=== PATIENT | female | born 1950 | race Caucasian/White ===

== ENCOUNTER 2016-12-09 10:52 | Inpatient (IN) | payer MEDICARE, OTHER ==
[~2016-12-09] VITALS: Ht 165.1 cm; Wt 99.5 kg
[2016-12-09] MEDS ORDERED: IPRATROPIUM (NEB) 0.5 MG/2.5 ML AMP INH STA (11:17)
[2016-12-09] MEDS ORDERED: ALBUTEROL 0.5% (NEB) 2.5 MG/0.5 ML AMP INH STA (11:17)
--- NOTE | 2016-12-09 11:27 | ERA ---
ER Documentation Chief Complaint Date/Time DATE: 12/09/16 TIME: 11:23 Chief Complaint CHEST PAIN; SHORTNESS OF BREATH HPI Patient is a 66-year-old female who reports shortness of breath over the last 2 weeks. She was in a different emergency department last night where they treated her with IV antibiotics and breathing treatments. She was discharged home and told to go to the emergency department if she develops any worsening symptoms. She says that her shortness of breath has worsened throughout the night. She has had chills without a fever. She has has a cough that is nonproductive. She does not have a sore throat but she does have a clear runny nose. She denies any otalgia, nausea, vomiting, dysuria, hematuria, abdominal pain. She denies any sick contacts. She has not traveled out of the country. She has not been on any recent antibiotics until last night when she received IV antibiotics. Nothing seems to make this better or worse. The remainder of the systems are negative. ROS All systems reviewed and are negative except as per history of present illness. Medications Home Meds Reported Medications Hydrochlorothiazide* (Hydrochlorothiazide*) 25 Mg Tab, 25 MG PO DAILY, #30 TAB 12/09/16 Atorvastatin* (Atorvastatin*) 40 Mg Tablet, 40 MG PO QHS, #30 TAB 12/09/16 Metformin Hcl* (Metformin Hcl*) 1,000 Mg Tablet, 1000 MG PO WITH BREAKFAST DINNE , #30 TAB 12/09/16 Allergies Allergies: Coded Allergies: losartan (Verified Allergy, Unknown, COUGH, 12/09/16) FmHx Family History: No diabetes Physical Exam Vitals Vital Signs Date Time Temp Pulse Resp B/P Pulse Ox O2 Delivery O2 Flow Rate FiO2 12/09/16 12:59 99.0 92 16 168/92 95 Room Air 4.0 12/09/16 11:42 100 24 95 Nasal Cannula 4.0 12/09/16 11:30 Nasal Cannula 4 12/09/16 10:55 99.2 112 29 195/98 88 Physical Exam Const: [] Well-developed well-nourished female sitting on the bed no acute distress Head: Atraumatic normocephalic Eyes: Normal Conjunctiva ENT: Normal External Ears, Nose and Mouth., TMs are clear bilaterally Neck: Full range of motion..~ No meningismus. Resp: Diffuse inspiratory and expiratory wheezes, mild tachypnea, no retractions, no nasal flaring Cardio: Regular rate and rhythm, no murmurs Abd: Soft, non tender, non distended. Normal bowel sounds Skin: No petechiae or rashes Back: No midline or flank tenderness Ext: No cyanosis, or edema, no tenderness palpation of the calf Neur: Awake and alert, oriented 3, GCS 15, able to speak in full sentences Psych: Normal Mood and Affect Result Diagram: 12/09/16 1130 12/09/16 1130 Results 24 hrs Laboratory Tests Test 12/09/16 11:30 Activated Partial Thromboplast Time 31.6Sec Alanine Aminotransferase (ALT/SGPT) 30IU/L Albumin 4.2g/dl Albumin/Globulin Ratio 1.27 Alkaline Phosphatase 213IU/L Anion Gap 16 Aspartate Amino Transf (AST/SGOT) 27IU/L Basophils # 0.010^3/ul Basophils % 0.4% Blood Urea Nitrogen 13mg/dl Calcium Level 9.4mg/dl Carbon Dioxide Level 27mmol/L Chloride Level 102mmol/L Creatinine 0.85mg/dl Direct Bilirubin 0.00mg/dl Eosinophils # 0.210^3/ul Eosinophils % 4.8% Globulin 3.30g/dl Glucose Level 182mg/dl Hematocrit 40.4% Hemoglobin 13.7g/dl INR International Normalized Ratio 0.99 Indirect Bilirubin 0.2mg/dl Lymphocytes # 0.310^3/ul Lymphocytes % 6.8% Mean Corpuscular Hemoglobin 31.9pg Mean Corpuscular Hemoglobin Concent 33.9g/dl Mean Corpuscular Volume 94.2fl Mean Platelet Volume 9.6fl Monocytes # 0.410^3/ul Monocytes % 9.5% Neutrophils # 3.610^3/ul Neutrophils % 78.1% Nucleated Red Blood Cells # 0.010^3/ul Nucleated Red Blood Cells % 0.0/100WBC Platelet Count 57764^3/UL Potassium Level 3.5mmol/L Prothrombin Time 13.1Sec Prothrombin Time Ratio 1.0 Red Blood Count 4.2910^6/ul Red Cell Distribution Width 13.1% Sodium Level 141mmol/L Total Bilirubin 0.2mg/dl Total Protein 7.5g/dl Troponin I < 0.012ng/ml White Blood Count 4.610^3/ul Current Medications Medications (Trade) Dose Ordered Sig/Elly Route PRN Reason Start Time Stop Time Status Last Admin Dose Admin Albuterol (Proventil 0.5% (Neb)) 5 mg ONCE STAT INH 12/09/16 11:17 12/09/16 11:20 DC 12/09/16 11:41 Ipratropium [place] (Atrovent 0.02% (Neb)) 1 mg ONCE STAT INH 12/09/16 11:17 12/09/16 11:20 DC 12/09/16 11:41 Dexamethasone (Decadron) 6 mg ONCE ONCE IV 12/09/16 11:30 12/09/16 11:31 DC 12/09/16 11:28 Procedures/MDM Differential includes but is not limited to COPD exacerbation, bronchitis, pneumonia, CHF, angina, dyspnea EKG: Rate/Rhythm: Normal Sinus Rhythm at 110 beats per minutes without any evidence of ischemia, arrhythmia, or ectopy noted, no old EKG available for comparison QRS, ST, T-waves: No changes consistent w/ acute ischemia Impression: No evidence of ischemia or arrhythmia Chest x-ray shows some peribronchial thickening consistent with chronic bronchitis, no acute infiltrate noted 1409: Reevaluation of the patient reveals that she still has diffuse inspiratory and expiratory wheezing although she has improved air movement. She is 94% on 4 L nasal cannula. I feel it is most prudent to admit her to the hospital for continue nebulizer therapy and oxygen therapy. Patient has no questions at this time. 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
[2016-12-09] MEDS ORDERED: DEXAMETHASONE 10 MG/ML 1 ML INJ IV ONE (11:30)
[2016-12-09] MEDS ORDERED: HYD25 PO (11:31)
[2016-12-09] MEDS ORDERED: METF1000 PO (11:31)
[2016-12-09] MEDS ORDERED: ATOR40TA68 PO (11:31)
[2016-12-09 11:43] LABS: ADD SCAN DIFF NO
[2016-12-09 11:45] LABS: ABNORMAL IP MESSAGE 1; BASOPHILS % 0.4 % (0.0-2.0); EOSINOPHILS # 0.2 10^3/ul (0.0-0.5); EOSINOPHILS % 4.8 % (0.0-7.0); HEMATOCRIT 40.4 % (37.0-47.0); HEMOGLOBIN 13.7 g/dl (12.0-16.0); LYMPHOCYTES # 0.3 10^3/ul (0.8-2.9); LYMPHOCYTES % 6.8 % (15.0-51.0); MEAN CORPUSCULAR HEMOGLOBIN 31.9 pg (29.0-33.0); MEAN CORPUSCULAR HGB CONC 33.9 g/dl (32.0-37.0); MEAN CORPUSCULAR VOLUME 94.2 fl (82.0-101.0); MEAN PLATELET VOLUME 9.6 fl (7.4-10.4); MONOCYTE # 0.4 10^3/ul (0.3-0.9); MONOCYTES % 9.5 % (0.0-11.0); NEUTROPHIL # 3.6 10^3/ul (1.6-7.5); NEUTROPHILS % 78.1 % (39.0-77.0); PLATELET COUNT 196 10^3/UL (140-415); RED BLOOD COUNT 4.29 10^6/ul (4.20-5.40); RED CELL DISTRIBUTION WIDTH 13.1 % (11.5-14.5); WHITE BLOOD COUNT 4.6 10^3/ul (4.8-10.8)
--- NOTE | 2016-12-09 11:52 | RADRPT ---
PROCEDURE: CHEST 1VW CLINICAL INDICATION: Shortness of breath TECHNIQUE: Single frontal view of the chest was obtained COMPARISON: None. FINDINGS: The cardiac size is normal. Aortic vascular calcifications are demonstrated. There is no pulmonary vascular congestion. Minimal bronchial wall thickening is seen. The lungs are otherwise clear. No consolidation, effusion, or pneumothorax. Mild degenerative changes of the visualized osseous structures are visualized. IMPRESSION: 1. Minimal bronchial wall thickening may be sequela of bronchitis, asthma, or other nonspecific air way inflammation. 2. Atherosclerosis. RPTAT:PP .Ladarius Shirley MD, MD Date Time Electronically viewed and signed by .Ladarius Shirley MD, MD on 12/09/2016 11:52 .V/
[2016-12-09 11:59] LABS: INR 0.99; PROTIME 13.1 Sec (12.2-14.2)
[2016-12-09 12:00] LABS: PARTIAL THROMBOPLASTIN TIME 31.6 Sec (25.0-35.0)
[2016-12-09 12:04] LABS: ALBUMIN 4.2 g/dl (3.3-4.9); CHLORIDE 102 mmol/L (97-110); POTASSIUM 3.5 mmol/L (3.5-5.1); SODIUM 141 mmol/L (135-144)
[2016-12-09 12:06] LABS: CREATININE 0.85 mg/dl (0.44-1.00)
[2016-12-09 12:07] LABS: ALANINE AMINOTRANSFERASE 30 IU/L (13-69); ALBUMIN/GLOBULIN RATIO 1.27; ALKALINE PHOSPHATASE 213 IU/L (42-121); ANION GAP 16 (8-16); ASPARTATE AMINO TRANSFERASE 27 IU/L (15-46); BILIRUBIN,INDIRECT 0.2 mg/dl (0-1.1); BILIRUBIN,TOTAL 0.2 mg/dl (0.2-1.3); BLOOD UREA NITROGEN 13 mg/dl (7-20); CALCIUM 9.4 mg/dl (8.4-10.2); CARBON DIOXIDE 27 mmol/L (21-31); GLUCOSE 182 mg/dl (70-220); TOTAL PROTEIN 7.5 g/dl (6.1-8.1)
[2016-12-09 12:22] LABS: TROPONIN-I < 0.012 ng/ml (0.00-0.12)
[2016-12-09] MEDS ORDERED: ALBUTEROL/IPRATROPIUM (NEB) 3 ML AMP HHN STA ×2 (14:29→16:12)
[2016-12-09] MEDS ORDERED: ACETAMINOPHEN 325 MG TAB PO PRN (14:30)
[2016-12-09] MEDS ORDERED: ONDANSETRON 4 MG INJ IV PRN (14:30)
[2016-12-09 15:04] VITALS: TEMP 98.7
[2016-12-09 16:08] VITALS: BP 161/85; PULSE 110; RESP 16
[2016-12-09 16:14] VITALS: Ht 165.1 cm; Wt 99.5 kg
[2016-12-09] MEDS ORDERED: GLUCOSE GEL 15 GRAM TUBE PO PRN ×2 (16:30)
[2016-12-09] MEDS ORDERED: GLUCAGON 1 MG INJ IM PRN (16:30)
[2016-12-09] MEDS ORDERED: DEXTROSE 50% 50 ML SYRINGE IV PRN ×2 (16:30)
[2016-12-09] MEDS ORDERED: NITROGLYCERIN (SL) 0.4 MG TAB SL PRN (16:30)
[2016-12-09] MEDS ORDERED: NACL 0.9% 3 ML SYG IV SCH (16:30)
[2016-12-09] MEDS ORDERED: ONDANSETRON 4 MG TAB PO PRN (16:30)
[2016-12-09] MEDS ORDERED: GLUCOSE GEL 15 GRAM TUBE BUCCAL PRN (16:30)
[2016-12-09] MEDS ORDERED: DOCUSATE SODIUM 100 MG CAP PO PRN (16:30)
[2016-12-09] MEDS ORDERED: ACETAMINOPHEN 650 MG SUPP PR PRN (16:30)
[2016-12-09 16:31] VITALS: PULSE 101
[2016-12-09] MEDS: CEFTRIAXONE 1 GM/50 ML (PMX) 50 ML IVPB SCH (17:21)
[2016-12-09] MEDS: metFORMIN 500 MG TAB PO SCH (17:22)
[2016-12-09] MEDS: hydrALAzine 20 MG INJ IV PRN (17:22)
[2016-12-09] MEDS: ACETAMINOPHEN 325 MG TAB PO PRN (17:22)
[2016-12-09] MEDS: GUAIFENESIN/DM 5ML CUP PO PRN ×2 (17:23→21:39)
[2016-12-09] MEDS ORDERED: INSULIN ASPART [NOVOLOG] 3 ML PEN SC SCH (17:55)
--- NOTE | 2016-12-09 18:18 | HP ---
DATE OF ADMISSION: 12/09/2016 E M ASSEMBLER: None. CHIEF COMPLAINT: Shortness of breath and cough. HISTORY OF PRESENT ILLNESS: This is a pleasant 66-year-old female with past medical history of hype rtension, diabetes mellitus, dyslipidemia, obesity, BMI of 36.3, asthma, who presents to [facility] secondary to having shortness of breath accompanied with cough and congestion. Th e cough and congestion started about 2 weeks ago with the patient having shortness of breath and whe ezing. The patient has been using her home nebulizer without any significant improvement. The celestino ent was seen and evaluated at [facility] this morning and was discharged home on some cough medication was diagnosed with bronchitis, although patient had exacerbation of her shortness of yennifer ath. therefore, she presented to [facility] for further evaluation and treatment. Upon arrival to emergency room, patient was found to have oxygen saturation of 88% in room air, tigre pite being treated with breathing treatment such as DuoNeb. She was also treated with dexamethasone . The patient continues to have wheezing, cough and congestion, and shortness of breath. The patie nt denies having any chest pain. No headache, dizziness, lightheadedness. No change in visual acui ty, diplopia, photophobia. No recent travel history. No sick contact. The cough is productive wit h just whitish phlegm. She is afebrile. No chest pain, no abdominal pain, no nausea, vomiting, alisha rrhea. No dysuria, hematuria, urgency, incontinence. No hair loss. No rashes or hives. The other 12 review of systems has been found to be negative. PAST MEDICAL AND SURGICAL HISTORY: 1. Hypertension. 2. Asthma. 3. Dyslipidemia. 4. Obesity. 5. Diabetes mellitus. MEDICATIONS: 1. Lipitor. 2. Hydrochlorothiazide. 3. Metformin. ALLERGIES: LOSARTAN. SOCIAL HISTORY: Negative x3 for smoking, alcohol, illicit drugs. She is . Her 12 years ago. She used to smoke. She is not dependent to others for daily activity. FAMILY HISTORY: Noncontributory. REVIEW OF SYSTEMS: As above per HPI, otherwise 12 review of systems was found to be negative. PHYSICAL EXAMINATION: VITAL SIGNS: Temperature 98.7, pulse 100, respirations 16, blood pressure 155/80, oxygen 97% on 3 l iters via nasal cannula. GENERAL APPEARANCE: The patient is lying in bed comfortably, not using any accessory muscle. She i s awake, alert, oriented. Body habitus morbidly obese with BMI 36.3. EYES AND ENT: Conjunctivae and lids are normal. Pupils are normal. Extraocular normal. Hearing g rossly normal. Lips are normal. Oral mucosa is moist. NECK: Supple. Trachea is midline. No lymphadenopathy. RESPIRATORY: Effort is normal. Clear to auscultate bilaterally. CARDIOVASCULAR: Normal S1, S2. Regular rhythm and rate. No murmur, no bruits, no edema. Peripher al pulses, radial pulses palpable. Cap refill is normal. CHEST: Normal expansion of thorax during inspiration. GASTROINTESTINAL: Abdomen is soft, nontender, not distended. Bowel sounds present. No guarding, n o rebound. LUNGS: Bilateral upper lung wheezing with some rhonchi. GENITOURINARY: Deferred. MUSCULOSKELETAL: Upper and lower extremities within normal limits. Full range of motion, strength 5/5 in both upper and lower extremities. NEUROLOGIC: Cranial nerves II through XII are grossly intact. PSYCHIATRIC: Normal judgment and insight. Alert and oriented x3. Mood and affect is normal. LABORATORY WORK AND IMAGING: Sodium 141, potassium 3.5, chloride 102, bicarbonate 27, BUN 13, creat inine 0.85, glucose 182, calcium 9.4. Troponin negative. WBC 4.6, hemoglobin 13.7, hematocrit 40.4 , platelets 196. Chest x-ray, minimal bronchial wall thickening, may be ____ bronchitis, asthma, atherosclerosis. ASSESSMENT AND PLAN: 1. Bronchitis. The patient has been started on Rocephin and cough medication. 2. Asthma exacerbation secondary to #1. Continue breathing treatment. Patient has been placed on IV Solu-Medrol, DuoNeb. Continue oxygen to keep oxygen saturation above 94%. 3. Dyslipidemia. Continue statin. Follow up lipid panel. 4. Hypertension. Continue hydrochlorothiazide. We will also place the patient on p.r.n. hydralazi ne. 5. Diabetes mellitus. Continue metformin and also place on insulin sliding scale and low carb diet . 6. For deep venous thrombosis prophylaxis, place the patient on Lovenox. 7. For gastrointestinal prophylaxis, I will place the patient on Pepcid. 8. We will continue to monitor patient closely per recommendation, management and treatment as per clinical course. Total amount of time was ____. Condition fair. Dictated By: ARTIE SEQUEIRA/NTS Conf#: [id number] DID#: [id number]
[2016-12-09 19:17] VITALS: BP 170/77; RESP 20
[2016-12-09] MEDS: ALBUTEROL/IPRATROPIUM (NEB) 3 ML AMP HHN PRN (19:35)
[2016-12-09 20:02] VITALS: PULSE 100
[2016-12-09] MEDS: ATORVASTATIN 40 MG TAB PO SCH (20:07)
[2016-12-09] MEDS: FAMOTIDINE 20 MG TAB PO SCH (20:07)
[2016-12-09] MEDS: morphine 2 MG INJ IV PRN (20:08)
[2016-12-09] MEDS: METHYLPREDNISOLONE 125 MG INJ IV SCH (21:39)
[2016-12-09] MEDS: NPH, HUMAN INSULIN ISOPHANE 3ML VIAL SC SCH (21:44)
[2016-12-09] MEDS: INSULIN ASPART [NOVOLOG] 3 ML PEN SC SCH (21:45)
[2016-12-10] VITALS (14 sets, daily range): BP systolic 131–184; BP diastolic 72–87; PULSE 80–118; RESP 18–20
[2016-12-10] MEDS: GUAIFENESIN/DM 5ML CUP PO PRN ×4 (01:26→20:14)
[2016-12-10] MEDS: ACCU-CHEK XX SCH (01:33)
[2016-12-10] MEDS ORDERED: ACCU-CHEK XX SCH (02:00)
[2016-12-10] MEDS: ALBUTEROL/IPRATROPIUM (NEB) 3 ML AMP HHN PRN ×2 (03:29→09:13)
[2016-12-10] MEDS: METHYLPREDNISOLONE 125 MG INJ IV SCH ×3 (05:46→20:28)
[2016-12-10] MEDS: NPH, HUMAN INSULIN ISOPHANE 3ML VIAL SC SCH ×3 (05:48→20:37)
[2016-12-10] MEDS: ACETAMINOPHEN 325 MG TAB PO PRN (05:53)
[2016-12-10 07:26] LABS: ADD SCAN DIFF NO
[2016-12-10 07:31] LABS: HEMATOCRIT 38.2 % (37.0-47.0); HEMOGLOBIN 12.8 g/dl (12.0-16.0); LYMPHOCYTES # 0.7 10^3/ul (0.8-2.9); LYMPHOCYTES % 15.3 % (15.0-51.0); MEAN CORPUSCULAR HEMOGLOBIN 31.4 pg (29.0-33.0); MEAN CORPUSCULAR HGB CONC 33.5 g/dl (32.0-37.0); MEAN CORPUSCULAR VOLUME 93.6 fl (82.0-101.0); MEAN PLATELET VOLUME 9.7 fl (7.4-10.4); MONOCYTE # 0.1 10^3/ul (0.3-0.9); MONOCYTES % 2.5 % (0.0-11.0); NEUTROPHIL # 3.7 10^3/ul (1.6-7.5); PLATELET COUNT 195 10^3/UL (140-415); RED BLOOD COUNT 4.08 10^6/ul (4.20-5.40); RED CELL DISTRIBUTION WIDTH 12.9 % (11.5-14.5); WHITE BLOOD COUNT 4.5 10^3/ul (4.8-10.8)
[2016-12-10 08:00] LABS: POTASSIUM 3.7 mmol/L (3.5-5.1)
[2016-12-10 08:02] LABS: CREATININE 0.84 mg/dl (0.44-1.00)
[2016-12-10 08:03] LABS: CALCIUM 8.8 mg/dl (8.4-10.2); CHOL/HDL RATIO 2.5 RATIO; MAGNESIUM 1.9 mg/dl (1.7-2.5)
[2016-12-10] MEDS: FAMOTIDINE 20 MG TAB PO SCH ×2 (08:08→20:28)
[2016-12-10] MEDS: metFORMIN 500 MG TAB PO SCH ×2 (08:08→17:11)
[2016-12-10] MEDS: HYDROCHLOROTHIAZIDE 12.5 MG CAP PO SCH (08:09)
[2016-12-10] MEDS: ASPIRIN 81 MG TAB PO SCH (08:09)
[2016-12-10] MEDS: ENOXAPARIN 40 MG/0.4 ML SYG SC SCH (08:14)
[2016-12-10] MEDS: INSULIN ASPART [NOVOLOG] 3 ML PEN SC SCH ×4 (08:14→20:41)
[2016-12-10] MEDS ORDERED: INFLUENZA VIRUS VACCINE 0.5 ML (DISPENSING) IM* ONE (09:00)
[2016-12-10] MEDS: hydrALAzine 20 MG INJ IV PRN (09:27)
--- NOTE | 2016-12-10 11:39 | PN ---
Date/Time of Note Date/Time of Note DATE: 12/10/16 TIME: 11:32 Assessment/Plan VTE Prophylaxis VTE Prophylaxis Intervention: LMWH Lines/Catheters [facility] Saline Lock Urinary Cath still in place: No Assessment/Plan Chief Complaint/Hosp Course ASSESSMENT AND PLAN: 1. Bronchitis. Continue Rocephin and cough medication. 2. Asthma exacerbation secondary to #1. Continue breathing treatment. Patient has been placed on IV Solu-Medrol, DuoNeb. 3. Dyslipidemia. Continue statin. Follow up lipid panel. 4. Hypertension. Continue hydrochlorothiazide. We will also place the patient on p.r.n. hydralazine. 5. Diabetes mellitus. Hemoglobin A1c of 7.8 , continue metformin and also place on insulin sliding scale and low carb diet. 6. For deep venous thrombosis prophylaxis, continue Lovenox. 7. For gastrointestinal prophylaxis, continue Pepcid. We will continue to monitor patient closely per recommendation, management and treatment as per clinical course. Problems: Subjective 24 Hr Interval Summary Free Text/Dictation Patient continues to complain of having shortness of breath Denies any chest pain Tolerating oral intake Ambulating without any difficulty Exam/Review of Systems Vital Signs Vitals Vital Signs Date Time Temp Pulse Resp B/P Pulse Ox O2 Delivery O2 Flow Rate FiO2 12/10/16 11:07 102 143/87 12/10/16 09:32 Nasal Cannula 3.0 12/10/16 09:14 20 95 12/10/16 07:24 99.2 12/09/16 14:57 21 Intake and Output 12/09/16 12/09/16 12/10/16 15:00 23:00 07:00 Intake Total 50 ml 880 ml Balance 50 ml 880 ml Exam General: The patient is well-developed, Not in acute distress. HEENT: Atraumatic, normocephalic. The pupils are equal and round . Neck: Supple with full range of motion. Chest: Normal expansion of the thorax during inspiration Lungs: Bilateral upper lung wheezing Heart: Normal S1-S2, Regular rhythm and rate. Abdomen: Soft , nontender, nondistended , bowel sounds are present. Extremities: Normal to inspection, no edema no cyanosis Neurologic: Normal mental status,The patient is awake, alert and oriented . Results Result Diagram: 3/22/17 0715 3/22/17 0715 Results 24 hrs Laboratory Tests Test 12/09/16 17:10 12/09/16 18:34 12/09/16 21:38 12/10/16 01:28 Bedside Glucose 354 H 386 H 195 199 Test 12/10/16 05:45 12/10/16 07:15 12/10/16 07:46 Bedside Glucose 247 H 274 H White Blood Count 4.5 L Red Blood Count 4.08 L Hemoglobin 12.8 Hematocrit 38.2 Mean Corpuscular Volume 93.6 Mean Corpuscular Hemoglobin 31.4 Mean Corpuscular Hemoglobin Concent 33.5 Red Cell Distribution Width 12.9 Platelet Count 195 Mean Platelet Volume 9.7 Neutrophils % 82.0 H Lymphocytes % 15.3 Monocytes % 2.5 Eosinophils % 0.0 Basophils % 0.0 Nucleated Red Blood Cells % 0.0 Neutrophils # 3.7 Lymphocytes # 0.7 L Monocytes # 0.1 L Eosinophils # 0.0 Basophils # 0.0 Nucleated Red Blood Cells # 0.0 Sodium Level 139 Potassium Level 3.7 Chloride Level 99 Carbon Dioxide Level 27 Anion Gap 17 H Blood Urea Nitrogen 16 Creatinine 0.84 Glucose Level 263 H Hemoglobin A1c 7.5 H Calcium Level 8.8 Magnesium Level 1.9 Triglycerides Level 48 Cholesterol Level 133 LDL Cholesterol, Calculated 71 HDL Cholesterol 52 Cholesterol/HDL Ratio 2.5 Medications Medications Current Medications Ceftriaxone Sodium (Rocephin) 50 ml @ 100 mls/hr Q24H IVPB Last administered on 12/09/16 17:21; Admin Dose 100 MLS/HR; Start 12/09/16 at 17:00 Guaifenesin/ Dextromethorphan (Robitussin Dm Liquid Cup) 5 ml Q4H PRN PO COUGH Last administered on 12/10/16 10:39; Admin Dose 5 ML; Start 12/09/16 at 16:30 Atorvastatin Calcium (Lipitor) 40 mg QHS PO Last administered on 12/09/16 20: 07; Admin Dose 40 MG; Start 12/09/16 at 21:00 Hydrochlorothiazide (Hydrochlorothiazide) 12.5 mg DAILY PO Last administered on 12/10/16 08:09; Admin Dose 12.5 MG; Start 12/10/16 at 09:00 Diagnostic Test (Pha) (Accucheck) 1 ea 02 XX ; Start 12/10/16 at 02:00 Miscellaneous Information 1 ea NOTE XX ; Start 12/09/16 at 16:30 Glucose (Glutose) 15 gm Q15M PRN PO DECREASED GLUCOSE; Start 12/09/16 at 16:30 Glucose (Glutose) 22.5 gm Q15M PRN PO DECREASED GLUCOSE; Start 12/09/16 at 16: 30 Dextrose (D50w Syringe) 25 ml Q15M PRN IV DECREASED GLUCOSE; Start 12/09/16 at 16:30 Dextrose (D50w Syringe) 50 ml Q15M PRN IV DECREASED GLUCOSE; Start 12/09/16 at 16:30 Glucagon (Glucagen) 1 mg Q15M PRN IM DECREASED GLUCOSE; Start 12/09/16 at 16:30 Glucose (Glutose) 15 gm Q15M PRN BUCCAL DECREASED GLUCOSE; Start 12/09/16 at 16 :30 Ondansetron HCl (Zofran Tab) 4 mg Q6H PRN PO NAUSEA AND/OR VOMITING; Start at 16:30 Aspirin (Aspirin) 81 mg DAILY PO Last administered on 12/10/16 08:09; Admin Dose 81 MG; Start 12/10/16 at 09:00 Nitroglycerin (Nitroglycerin (Sl Tab) 0.4 Mg) 1 tab Q5M PRN SL CHEST PAIN; Start 12/09/16 at 16:30 Acetaminophen (Tylenol Tab) 650 mg Q6H PRN PO PAIN LEVEL 1-3 OR FEVER Last administered on 12/10/16 05:53; Admin Dose 650 MG; Start 12/09/16 at 16:30 Acetaminophen (Tylenol Supp) 650 mg Q6H PRN [place] PAIN LEVEL 1-3 OR FEVER; Start 12/09/16 at 16:30 Morphine Sulfate (morphine) 1 mg Q4H PRN IV PAIN LEVEL 7-10 Last administered on 12/09/16 20:08; Admin Dose 1 MG; Start 12/09/16 at 16:30 Docusate Sodium (Colace) 100 mg Q12H PRN PO CONSTIPATION; Start 12/09/16 at 16: 30 Famotidine (Pepcid) 20 mg Q12 PO Last administered on 12/10/16 08:08; Admin Dose 20 MG; Start 12/09/16 at 21:00 Enoxaparin Sodium (Lovenox) 40 mg DAILY SC Last administered on 12/10/16 08:14 ; Admin Dose 40 MG; Start 12/10/16 at 09:00 Hydralazine HCl (Apresoline) 10 mg Q6H PRN IV ELEVATED BLOOD PRESSURE Last administered on 12/10/16 09:27; Admin Dose 10 MG; Start 12/09/16 at 16:30 Methylprednisolone Sodium Succinate (Solu-Medrol) 40 mg Q8 IV ; Start 12/10/16 at 14:00; Status UNV Insulin Human NPH (Humulin N) 8 unit Q8 SC ; Start 12/10/16 at 14:00; Status UNV ARTIE NOONAN MD Dec 10, 2016 11:39
[2016-12-10] MEDS: morphine 2 MG INJ IV PRN ×2 (11:45→22:52)
[2016-12-10] MEDS: LEVALBUTEROL (NEB) 0.63 MG/3 ML AMP HHN SCH ×3 (12:16→20:19)
[2016-12-10] MEDS ORDERED: NPH, HUMAN INSULIN ISOPHANE 3ML VIAL SC SCH (14:00)
[2016-12-10] MEDS ORDERED: AMLODIPINE 10 MG TAB PO ONE (15:00)
[2016-12-10] MEDS ORDERED: NIFEdipine (XL) 60 MG TAB PO ONE (15:30)
[2016-12-10] MEDS: CEFTRIAXONE 1 GM/50 ML (PMX) 50 ML IVPB SCH (17:11)
[2016-12-10] MEDS: ATORVASTATIN 40 MG TAB PO SCH (20:14)
[2016-12-10] MEDS: NIFEdipine (XL) 60 MG TAB PO SCH (20:16)
[2016-12-11] VITALS (12 sets, daily range): BP systolic 105–129; BP diastolic 55–68; PULSE 77–99; RESP 18–20
[2016-12-11] MEDS: LEVALBUTEROL (NEB) 0.63 MG/3 ML AMP HHN SCH ×6 (00:29→20:28)
[2016-12-11] MEDS: ACCU-CHEK XX SCH (01:38)
[2016-12-11] MEDS: METHYLPREDNISOLONE 125 MG INJ IV SCH ×3 (05:16→21:34)
[2016-12-11] MEDS: NPH, HUMAN INSULIN ISOPHANE 3ML VIAL SC SCH ×3 (05:23→21:31)
[2016-12-11] MEDS: ASPIRIN 81 MG TAB PO SCH (08:43)
[2016-12-11] MEDS: NIFEdipine (XL) 60 MG TAB PO SCH ×2 (08:43→21:11)
[2016-12-11] MEDS: FAMOTIDINE 20 MG TAB PO SCH ×2 (08:44→21:10)
[2016-12-11] MEDS: metFORMIN 500 MG TAB PO SCH ×2 (08:44→17:52)
[2016-12-11] MEDS: HYDROCHLOROTHIAZIDE 12.5 MG CAP PO SCH (08:44)
[2016-12-11] MEDS: INSULIN ASPART [NOVOLOG] 3 ML PEN SC SCH ×4 (08:48→21:26)
[2016-12-11] MEDS: ENOXAPARIN 40 MG/0.4 ML SYG SC SCH (08:49)
--- NOTE | 2016-12-11 11:37 | PN ---
Date/Time of Note Date/Time of Note DATE: 12/11/16 TIME: 11:35 Assessment/Plan VTE Prophylaxis VTE Prophylaxis Intervention: LMWH Lines/Catheters [facility] Saline Lock Urinary Cath still in place: No Assessment/Plan Chief Complaint/Hosp Course ASSESSMENT AND PLAN: 1. Bronchitis. Continue Rocephin , azithromycin and cough medication. 2. Asthma exacerbation secondary to #1. Continue breathing treatment. Patient has been placed on IV Solu-Medrol, DuoNeb. 3. Dyslipidemia. Continue statin. Follow up lipid panel. 4. Hypertension. Continue hydrochlorothiazide. We will also place the patient on p.r.n. hydralazine. 5. Diabetes mellitus. Hemoglobin A1c of 7.8 , continue metformin and continue insulin sliding scale and low carb diet. 6. For deep venous thrombosis prophylaxis, continue Lovenox. 7. For gastrointestinal prophylaxis, continue Pepcid. We will continue to monitor patient closely per recommendation, management and treatment as per clinical course. Problems: Subjective 24 Hr Interval Summary Free Text/Dictation Patient continues to have cough and congestion Continues to have shortness of breath Denies of any chest pain Exam/Review of Systems Vital Signs Vitals Vital Signs Date Time Temp Pulse Resp B/P Pulse Ox O2 Delivery O2 Flow Rate FiO2 12/11/16 09:30 95 3.0 12/11/16 09:30 88 28 Nasal Cannula 12/11/16 08:19 98.3 105/55 12/09/16 14:57 21 Intake and Output 12/10/16 12/10/16 12/11/16 15:00 23:00 07:00 Intake Total 50 ml 300 ml Balance 50 ml 300 ml Exam General: The patient is well-developed, Not in acute distress. HEENT: Atraumatic, normocephalic. The pupils are equal and round . Neck: Supple with full range of motion. Chest: Normal expansion of the thorax during inspiration Lungs: Bilateral upper lung wheezing Heart: Normal S1-S2, Regular rhythm and rate. Abdomen: Soft , nontender, nondistended , bowel sounds are present. Extremities: Normal to inspection, no edema no cyanosis Neurologic: Normal mental status,The patient is awake, alert and oriented . Results Result Diagram: 12/10/16 0715 12/10/16 0715 Results 24 hrs Laboratory Tests Test 12/10/16 11:43 12/10/16 17:10 12/10/16 20:12 12/11/16 01:36 Bedside Glucose 311 H 223 H 277 H 250 H Test 12/11/16 08:11 Bedside Glucose 304 H Medications Medications Current Medications Ceftriaxone Sodium (Rocephin) 50 ml @ 100 mls/hr Q24H IVPB Last administered on 12/10/16 17:11; Admin Dose 100 MLS/HR; Start 12/09/16 at 17:00 Guaifenesin/ Dextromethorphan (Robitussin Dm Liquid Cup) 5 ml Q4H PRN PO COUGH Last administered on 12/10/16 20:14; Admin Dose 5 ML; Start 12/09/16 at 16:30 Atorvastatin Calcium (Lipitor) 40 mg QHS PO Last administered on 12/10/16 20: 14; Admin Dose 40 MG; Start 12/09/16 at 21:00 Hydrochlorothiazide (Hydrochlorothiazide) 12.5 mg DAILY PO Last administered on 12/11/16 08:44; Admin Dose 12.5 MG; Start 12/10/16 at 09:00 Diagnostic Test (Pha) (Accucheck) 1 ea 02 XX ; Start 12/10/16 at 02:00 Miscellaneous Information 1 ea NOTE XX ; Start 12/09/16 at 16:30 Glucose (Glutose) 15 gm Q15M PRN PO DECREASED GLUCOSE; Start 12/09/16 at 16:30 Glucose (Glutose) 22.5 gm Q15M PRN PO DECREASED GLUCOSE; Start 12/09/16 at 16: 30 Dextrose (D50w Syringe) 25 ml Q15M PRN IV DECREASED GLUCOSE; Start 12/09/16 at 16:30 Dextrose (D50w Syringe) 50 ml Q15M PRN IV DECREASED GLUCOSE; Start 12/09/16 at 16:30 Glucagon (Glucagen) 1 mg Q15M PRN IM DECREASED GLUCOSE; Start 12/09/16 at 16:30 Glucose (Glutose) 15 gm Q15M PRN BUCCAL DECREASED GLUCOSE; Start 12/09/16 at 16 :30 Ondansetron HCl (Zofran Tab) 4 mg Q6H PRN PO NAUSEA AND/OR VOMITING; Start at 16:30 Aspirin (Aspirin) 81 mg DAILY PO Last administered on 12/11/16 08:43; Admin Dose 81 MG; Start 12/10/16 at 09:00 Nitroglycerin (Nitroglycerin (Sl Tab) 0.4 Mg) 1 tab Q5M PRN SL CHEST PAIN; Start 12/09/16 at 16:30 Acetaminophen (Tylenol Tab) 650 mg Q6H PRN PO PAIN LEVEL 1-3 OR FEVER Last administered on 12/10/16 05:53; Admin Dose 650 MG; Start 12/09/16 at 16:30 Acetaminophen (Tylenol Supp) 650 mg Q6H PRN [place] PAIN LEVEL 1-3 OR FEVER; Start 12/09/16 at 16:30 Morphine Sulfate (morphine) 1 mg Q4H PRN IV PAIN LEVEL 7-10 Last administered on 12/10/16 22:52; Admin Dose 1 MG; Start 12/09/16 at 16:30 Docusate Sodium (Colace) 100 mg Q12H PRN PO CONSTIPATION; Start 12/09/16 at 16: 30 Famotidine (Pepcid) 20 mg Q12 PO Last administered on 12/11/16 08:44; Admin Dose 20 MG; Start 12/09/16 at 21:00 Enoxaparin Sodium (Lovenox) 40 mg DAILY SC Last administered on 12/11/16 08:49 ; Admin Dose 40 MG; Start 12/10/16 at 09:00 Hydralazine HCl (Apresoline) 10 mg Q6H PRN IV ELEVATED BLOOD PRESSURE Last administered on 12/10/16 09:27; Admin Dose 10 MG; Start 12/09/16 at 16:30 Methylprednisolone Sodium Succinate (Solu-Medrol) 40 mg Q8 IV Last administered on 12/11/16 05:16; Admin Dose 40 MG; Start 12/10/16 at 14:00 Insulin Human NPH (Humulin N) 8 unit Q8 SC Last administered on 12/11/16 05:23 ; Admin Dose 8 UNIT; Start 12/10/16 at 14:00 Nifedipine (Procardia Xl) 60 mg BID PO Last administered on 12/11/16 08:43; Admin Dose 60 MG; Start 12/10/16 at 21:00 ARTIE NOONAN MD Dec 11, 2016 11:37
[2016-12-11] MEDS ORDERED: AZITHROMYCIN 250 MG TAB PO ONE (12:00)
[2016-12-11] MEDS: ALBUTEROL/IPRATROPIUM (NEB) 3 ML AMP HHN PRN (14:48)
[2016-12-11] MEDS: CEFTRIAXONE 1 GM/50 ML (PMX) 50 ML IVPB SCH (17:52)
[2016-12-11] MEDS: ATORVASTATIN 40 MG TAB PO SCH (21:10)
[2016-12-11] MEDS: morphine 2 MG INJ IV PRN (21:13)
[2016-12-12] VITALS (9 sets, daily range): BP systolic 117–145; BP diastolic 61–88; PULSE 74–96; RESP 16–20
[2016-12-12] MEDS: LEVALBUTEROL (NEB) 0.63 MG/3 ML AMP HHN SCH ×4 (00:17→12:27)
[2016-12-12] MEDS: ACCU-CHEK XX SCH (02:00)
[2016-12-12 06:13] LABS: ADD SCAN DIFF NO
[2016-12-12 06:45] LABS: POTASSIUM 4.1 mmol/L (3.5-5.1)
[2016-12-12 06:48] LABS: CREATININE 1.03 mg/dl (0.44-1.00)
[2016-12-12 06:49] LABS: CALCIUM 9.3 mg/dl (8.4-10.2); MAGNESIUM 2.2 mg/dl (1.7-2.5)
[2016-12-12] MEDS: METHYLPREDNISOLONE 125 MG INJ IV SCH (06:52)
[2016-12-12] MEDS: NPH, HUMAN INSULIN ISOPHANE 3ML VIAL SC SCH (06:53)
[2016-12-12 06:58] LABS: HEMATOCRIT 40.5 % (37.0-47.0); HEMOGLOBIN 13.2 g/dl (12.0-16.0); LYMPHOCYTES # 1.8 10^3/ul (0.8-2.9); LYMPHOCYTES % 23.2 % (15.0-51.0); MEAN CORPUSCULAR HGB CONC 32.6 g/dl (32.0-37.0); MEAN CORPUSCULAR VOLUME 95.1 fl (82.0-101.0); MEAN PLATELET VOLUME 9.8 fl (7.4-10.4); MONOCYTE # 0.4 10^3/ul (0.3-0.9); MONOCYTES % 4.9 % (0.0-11.0); NEUTROPHIL # 5.7 10^3/ul (1.6-7.5); NEUTROPHILS % 71.4 % (39.0-77.0); PLATELET COUNT 257 10^3/UL (140-415); RED BLOOD COUNT 4.26 10^6/ul (4.20-5.40); RED CELL DISTRIBUTION WIDTH 13.1 % (11.5-14.5); WHITE BLOOD COUNT 7.9 10^3/ul (4.8-10.8)
[2016-12-12] MEDS: metFORMIN 500 MG TAB PO SCH (08:25)
[2016-12-12] MEDS: NIFEdipine (XL) 60 MG TAB PO SCH (08:26)
[2016-12-12] MEDS: FAMOTIDINE 20 MG TAB PO SCH (08:26)
[2016-12-12] MEDS: HYDROCHLOROTHIAZIDE 12.5 MG CAP PO SCH (08:26)
[2016-12-12] MEDS: ASPIRIN 81 MG TAB PO SCH (08:26)
[2016-12-12] MEDS: ENOXAPARIN 40 MG/0.4 ML SYG SC SCH (08:27)
[2016-12-12] MEDS: INSULIN ASPART [NOVOLOG] 3 ML PEN SC SCH ×2 (08:33→12:25)
[2016-12-12] MEDS ORDERED: AZITHROMYCIN 250 MG TAB PO SCH (09:00)
--- NOTE | 2016-12-12 12:48 | PDOCDIS ---
Discharge Instructions CONDITION Patient Condition: Good HOME CARE INSTRUCTIONS: Special Diet: low carb diet ACTIVITY: Activity Restrictions: No Restrictions FOLLOW UP/APPOINTMENTS Appointments Follow up with PCP as out-pt ARTIE NOONAN MD Dec 12, 2016 12:48
[2016-12-12] MEDS ORDERED: SITA100T8 PO (12:53)
[2016-12-12] MEDS ORDERED: ASPI81TA3 PO (12:53)
[2016-12-12] MEDS ORDERED: UDROBDM PO (12:53)
[2016-12-12] MEDS ORDERED: ALBU2.5V3 NEB (12:53)
[2016-12-12] MEDS ORDERED: IPRA4AER INHALATION (12:53)
[2016-12-12] MEDS ORDERED: NIFE60TA11 PO (12:53)
[2016-12-12] MEDS ORDERED: METF1000 PO (12:53)
[2016-12-12] MEDS ORDERED: CEPH500C PO (12:54)
[2016-12-12] MEDS ORDERED: PRED20TA PO (12:54)
[2016-12-12] MEDS ORDERED: AZIT250T6 PO (12:54)
--- NOTE | 2016-12-12 15:31 | DS ---
DATE OF ADMISSION: 12/09/2016 DATE OF DISCHARGE: 12/12/2016 CONSULTANTS: Respiratory therapy. DISCHARGE DIAGNOSES: 1. Bronchitis. The patient is status post Rocephin and azithromycin. Will discharge on Keflex and azithromycin. 2. Asthma exacerbation, secondary to #1, status post breathing treatment, IV Solu-Medrol, and DuoNe b, improved significantly. 3. Dyslipidemia. Continue statin. 4. Hypertension. On hydrochlorothiazide and nifedipine. 5. Diabetes mellitus with a hemoglobin A1c of 7.8, uncontrolled. The patient was continued on metf ormin and was placed on insulin sliding scale and NPH with Solu-Medrol. The patient will be dischar ged on Januvia. 6. Obesity. Diet and exercise was recommended. 7. Intractable cough, likely secondary to #1. On cough syrup and Mucinex. MEDICATIONS: 1. Albuterol sulfate nebulizer. 2. Combivent. 3. Aspirin 81 mg. 4. Azithromycin 250 mg. 5. Keflex 500 mg. 6. Robitussin-DM. 7. Nifedipine XL 30 mg. 8. Prednisone 20 mg p.o. b.i.d. x10. 9. Januvia 100 mg. 10. Atorvastatin 40 mg. 11. Metformin 1000 mg p.o. b.i.d. 12. Hydrochlorothiazide 12.5 mg p.o. daily. ALLERGIES: [place]ARTAN. HOSPITAL COURSE: This is a very pleasant 66-year-old female with a past medical history of hyperten viki, asthma, dyslipidemia, diabetic mellitus, obesity with a BMI of 36.3, who presented to [facility] having shortness of breath, cough and congestion x2 weeks. The patient w as seen and evaluated at another facility/[facility], and she was discharged with cough syr up, although her condition worsened and she started having asthma exacerbation and severe shortness of breath. Therefore she presented to [facility] Emergency Room, where she was found to brown ve an oxygen saturation of 86% to 89%. The patient was placed on oxygen, Solu-Medrol, and DuoNebs a nd was admitted to the telemetry floor, where she was seen and evaluated by respiratory therapy. He r oxygen saturation started to improve significantly. Her vitals: Temperature 98.2, pulse 97, respi rations 22, blood pressure 133/66, oxygen saturation 93%. The patient has been able to ambulate wit hout any difficulty. She has been able to tolerate p.o. intake without oxygen. LABORATORY: WBC 7.9, hemoglobin 13.3, hematocrit 40.5, platelets 257. Sodium 138, potassium 4.1, ch loride 98, bicarbonate 26, BUN 34, creatinine 1.03, glucose 283, calcium 9.3, magnesium 2.2. Patien t's lipid panel: Triglycerides 48, total cholesterol 133, LDL 71, HDL 52. The lining caser was consulted for home health and the patient will be provided with a home nebulize r. At this time the patient is medically stable, to be discharged home with close followup with he r primary care physician as an outpatient. Dictated By: ARTIE SEQUEIRA/NTS Conf#: [id number] DID#: [id number]
== END 2016-12-12 15:27 | disposition home health service (06) | DRG 191 ==
LOC: E/R 10:52 → TEL 14:13
PROVIDERS: ADMIT Family Medicine; ATTEND Family Medicine
DX: J44.0 Chronic obstructive pulmonary disease with (acute) lower respiratory infection (principal); J45.901 Unspecified asthma with (acute) exacerbation; I10 Essential (primary) hypertension; J20.9 Acute bronchitis, unspecified; J44.1 Chronic obstructive pulmonary disease with (acute) exacerbation; R09.02 Hypoxemia; E78.5 Hyperlipidemia, unspecified; E11.9 Type 2 diabetes mellitus without complications; E66.9 Obesity, unspecified; Z79.4 Long term (current) use of insulin; Z68.36 Body mass index [BMI] 36.0-36.9, adult; Z87.891 Personal history of nicotine dependence
CPT/HCPCS: 36415; 71010; 80048; 80053; 80061; 82962; 83036; 83735; 84484; 85025; 85610; 85730; 87070; 90686; 93005; 94640; 94644; 94664; 96374; J0360; J0696; J1100; J1650; J1815; J2270; J2930